=== PATIENT | female | born 1970 | race Caucasian/White ===

== ENCOUNTER → 2019-06-20 16:08 | Outpatient (CLI) | payer MEDICARE ==
[2016-04-11 12:41] VITALS: BMI 48.1
[~2019-06-20 16:08] MED LIST: BENZTROPINE MESY1 MG PO; CARAFATE1 G PO; GLUCOPHAGE500 MG PO; HYDROCHLOROTHIA50 MG PO; INVEGA SUS117 MG/0.7 IM; KLONOPIN1 MG PO; LITHOBID 300 M300 MG PO; MACRODANTIN100 MG PO; NIZORAL 2 % CRE15 GM TOPICAL; PROZAC20 MG PO; RISPERDAL1 MG PO; TRAZODONE HCL50 MG PO
== END | disposition home or self-care (01) ==
LOC: D.US 16:08
PROVIDERS: ATTEND Family Medicine
DX: I89.0 Lymphedema, not elsewhere classified (principal)

== ENCOUNTER → 2020-01-15 08:21 | Outpatient (CLI) | payer MEDICARE ==
[2016-04-11 12:41] VITALS: BMI 48.1
== END | disposition home or self-care (01) ==
LOC: D.US 08:21
PROVIDERS: ATTEND Nurse Practitioner Family
DX: R10.11 Right upper quadrant pain (principal); R11.0 Nausea

== ENCOUNTER → 2020-01-16 06:06 | Outpatient (CLI) | payer MEDICARE ==
[2016-04-11 12:41] VITALS: BMI 48.1
== END | disposition home or self-care (01) ==
LOC: D.HCCARDIO 06:06
PROVIDERS: ATTEND Internal Medicine Cardiovascular Disease
DX: I20.9 Angina pectoris, unspecified (principal)

== ENCOUNTER 2020-02-27 16:54 | Emergency (ER) | payer MEDICARE ==
[~2020-02-27] VITALS: Ht 177.8 cm; Wt 159.1 kg
[2020-02-27 18:01] LABS: APTT 31.2 SECONDS (22.8-39.4); INR 1.17 (0.85-1.17); PROTIME 14.9 SECONDS (11.6-15.0)
[2020-02-27 18:03] LABS: BASOPHILS 0 % (0-2); EOSINOPHILS 0 % (0-7); HEMATOCRIT 35.5 % (36.0-48.0); HEMOGLOBIN 11.1 g/dL (12-16); IMMATURE GRANULOCYTES 0.3 % (0-5); LYMPHOCYTES 16.9 % (15-50); MCH 25.9 pg (26.0-34.0); MCHC 31.3 g/dL (31.0-37.0); MCV 82.9 fL (80.0-100.0); MEAN PLATELET VOLUME 9.8 fL (7.4-10.4); MONOCYTES 7.5 % (2-11); NEUTROPHILS 75.3 % (40-80); PLATELET COUNT 345 10x3/uL (130-400); RBC 4.28 10x6/uL (4.00-5.40); RDW 15.6 % (11.5-14.5); WBC 9.3 10x3/uL (4.8-10.8)
[2020-02-27 18:15] LABS: CALC OSMOLALITY 276 mosm/kg (275-300); CALCIUM 8.8 mg/dL (8.5-10.1); CARBON DIOXIDE 22.4 mmol/L (21.0-32.0); CHLORIDE - SERUM 105 mmol/L (98-107); CREATININE - SERUM 0.9 mg/dL (0.6-1.3); GLUCOSE 128 mg/dL (74-106); POTASSIUM - SERUM 3.8 mmol/L (3.5-5.1); SODIUM 138 mmol/L (136-145); UREA NITROGEN 9 mg/dL (7-18); eGFR NON AFRICAN AMERICAN 70 mL/min (90-120)
[2020-02-27 18:21] LABS: ALBUMIN 2.7 g/dL (3.4-5.0); ALKALINE PHOSPHATASE 118 U/L (30-120); ALT (SGPT) 108 U/L (10-68); BILIRUBIN - TOTAL 0.47 mg/dL (0.2-1.3); CKMB 4.1 U/L (0.0-3.6); CREATINE KINASE 48 UL (21-215); PRO BNP 35 pg/mL (0-125); PROTEIN - SERUM 5.8 g/dL (6.4-8.2); TROPONIN-I < 0.017 ng/mL (0.000-0.060)
== END 2020-02-27 21:08 | disposition home or self-care (01) ==
LOC: D.ER 16:54
PROVIDERS: Family Medicine
DX: R55 Syncope and collapse (principal); R53.1 Weakness; E11.9 Type 2 diabetes mellitus without complications; F32.9 Major depressive disorder, single episode, unspecified; I10 Essential (primary) hypertension; J45.909 Unspecified asthma, uncomplicated; Z79.84 Long term (current) use of oral hypoglycemic drugs; R06.02 Shortness of breath; R07.9 Chest pain, unspecified

== ENCOUNTER → 2020-05-24 11:52 | Outpatient (CLI) | payer MEDICARE ==
[2020-02-27 17:04] VITALS: BMI 50.3
== END | disposition home or self-care (01) ==
LOC: D.RT 11:52
PROVIDERS: ATTEND Nurse Practitioner
DX: R06.02 Shortness of breath (principal)